=== PATIENT | male | born 1955 | race Caucasian/White ===

== ENCOUNTER 2018-10-07 11:43 | Emergency (ER) | payer MEDICAID ==
[~2018-10-07] VITALS: Ht 167.6 cm; Wt 97.0 kg
[2018-10-07] MEDS ORDERED: BISACODYL 10MG SUPP PR ONE (15:45)
[2018-10-07] MEDS ORDERED: MAGNESIUM CITRATE 300ML SOLUTION PO ONE (15:45)
[2018-10-07 17:50] VITALS: BP 256/83
== END 2018-10-07 18:00 | disposition home or self-care (01) ==
LOC: ER 11:50
DX: K59.00 Constipation, unspecified (principal)
CPT/HCPCS: 74021; 82962; 99283